=== PATIENT | female | born 1970 | race Caucasian/White ===

== ENCOUNTER 2020-01-28 17:40 | Emergency (ER) | payer OTHER ==
[~2020-01-28] VITALS: Ht 160 cm; Wt 82.6 kg
[2020-01-28 17:40] VITALS: BP 123/91
[2020-01-28] MEDS ORDERED: FLUORESCEIN 1MG EYE STRIP. ONE (17:49)
[2020-01-28] MEDS ORDERED: TETRACAINE 0.5% OPHTH SOLUTION 4ML BOTTLE. ONE (17:49)
[2020-01-28] MEDS ORDERED: FLUORESCEIN 1MG EYE STRIP. OS ONE (18:30)
[2020-01-28] MEDS ORDERED: TETRACAINE 0.5% OPHTH SOLUTION 4ML BOTTLE. OS ONE (18:30)
[2020-01-28] MEDS ORDERED: KETOROLAC TROMETHAMINE 0.5% OPHTH SOLUTION BOTTLE. OS ONE (19:30)
[2020-01-28] MEDS ORDERED: HYDROcodon/IBUPROFEN 7.5/200MG 1 TAB TABLET PO ONE (19:30)
[2020-01-28] MEDS ORDERED: ERYTHROMYCIN 0.5% OPHTH OINTMENT 1GM TUBE. OS ONE (20:00)
[2020-01-28] MEDS ORDERED: DIPH,PERTUSS(ACELL),TET VAC/PF 0.5 ML SYRINGE. VAX IM ONE (20:00)
--- NOTE | 2020-01-29 07:48 | PHYS DOC ---
Past History Past Medical History: Asthma Past Surgical History: Cholecystectomy, Hysterectomy Additional Past Surgical Histo: thyroidectomy Alcohol Use: Rarely General Adult EDM: Chief Complaint: EYE PROBLEMS HPI: HPI: ".. I was moving some old [employer] light bulbs.. and some of the broke. .or really nacho popped open.. dust and felt like dust or glass particles went every where.. I felt stuff hit my face.. My Lt eye afterwards seemed irritated.. I am worried I got glass or something like the dust from inside of the bulbs in this Lt. eye..The right eye seems fine.. .I ve had Lasix surgery to both eyes.. .. the Rt. one was set up for far sight.. the Lt for reading.. I used to be really near sighted... well any way there is no visual changes.. even though I cannot read the far away letters with this left eye... It just had I am worried there may be glass or some dust or something in this left eye .. it feels irritated..." Patient is a 49 year old female with above history and complaints of left lower eye irritation after breaking some [place] bulbs and scattered dust and glass. Patient denies any vision changes. Patient localizes discomfort to left eye. Snellen eye chart by nursing showed vision in right eye was 20/20. Limited vision in left eye at distance. The patient states there was no change in vision since she had Lasix surgery, and left eye was left to be used for reading close-up . Patient left eye has no limbus injection. No obvious perforation with use of fluorescein. There was some mild take up fluorescein on cornea from very superficial abrasions. There was no consensual photophobia or direct photophobia in either eye. There was no obvious cell or flare. Limited Fundus but no obvious acute issues. Left eye was irrigated with normal saline under pressure. Patient did receive some tetracaine to allow for adequate exam and irrigation. Lids were lifted to allow irrigation under lids. No obvious foreign body or glass detected. The pt. did have findings of the superficial abrasions to the cornea. With the use of fluorescein did not detect any obvious perforation. Did use the split lamp. No obvious cell or flare. No obvious iris injury. No obvious lid injury. Patient does not remember her last tetanus shot so it was updated. Did apply erythromycin ointment to the left eye and she is to continue very small amounts 4 times a day. May take Tylenol and ibuprofen for pain. May use Toradol eyedrops 1 drop to left eye 4 times a day. Must return if any increased redness discomfort or pain or decreased vision. Warned not to rub eye. Warned always a possibility of missed foreign body or glass. Always concern chemical in side of the bulbs could irritate the eyes. Patient instructed to call nutritional services director of her choice or if unable to get in call office at [facility] for follow up exam, or if increased discomfort present to ED or hospital that has an nutritional services director secondary special education teacher for exam promptly. Patient denies any history immunosuppression. No recent travel. No specific ill contacts. Normally follows at [facility]. Note patient- observed for period time before discharge. Did report marked improvement of symptoms in left eye even after the tetracaine had worn off. Patient warned not to rub eye. Must follow-up promptly if any increased symptoms. Review of Systems: Review of Systems: Constitutional: Denies fever or chills Eyes: Denies change in visual acuity HENT: Denies nasal congestion or sore throat Respiratory: Denies cough or shortness of breath Cardiovascular: Denies chest pain or edema GI: Denies abdominal pain, nausea, vomiting, bloody stools or diarrhea : Denies dysuria Musculoskeletal: Denies back pain or joint pain Integument: Denies rash Neurologic: Denies headache, focal weakness or sensory changes Endocrine: Denies polyuria or polydipsia Lymphatic: Denies swollen glands Psychiatric: Denies depression or anxiety Current Medications: Current Meds: Current Medications Medications (Trade) Dose Ordered Sig/Krys Start Time Stop Time Status Last Admin Dose Admin Diphtheria/ Pertussis/Tetanus Vacc (ADACEL TDap SYRINGE) 0.5 ml ONCE ONCE 01/28/20 20:00 01/28/20 20:01 DC 01/28/20 19:58 0.5 ML Erythromycin (Romycin) 0.25 inch 1X ONCE 01/28/20 20:00 01/28/20 20:01 DC Fluorescein Sodium (Ful-Mila 1mg) 1 strip 1X ONCE 01/28/20 18:30 01/28/20 18:31 DC 01/28/20 18:15 1 STRIP Hydrocodone Bitartrate/ Ibuprofen (Vicoprofen 7.5-200) 2 tab 1X ONCE 01/28/20 19:30 01/28/20 19:50 DC 01/28/20 19:41 2 TAB Ketorolac Tromethamine (Acular) 1 drop 1X ONCE 01/28/20 19:30 01/28/20 19:50 DC 01/28/20 19:43 1 DROP Tetracaine HCl (Tetracaine) 1 drop 1X ONCE 01/28/20 18:30 01/28/20 18:31 DC 01/28/20 18:14 1 DROP Allergies: Allergies: Allergies Coded Allergies Type Severity Reaction Last Updated Verified promethazine Allergy Intermediate 01/28/20 Yes Physical Exam: PE: Constitutional: Well developed, well nourished, moderate acute distress, non- toxic appearance. [] HENT: Normocephalic, atraumatic, bilateral external ears normal, oropharynx moist, no oral exudates, nose normal. [] Eyes: PERRLA, EOMI, conjunctiva normal, no discharge. Exam left eye as per HPI. No photophobia. Patient reports no decreased vision. Neck: Normal range of motion, no tenderness, supple, no stridor. Old surgery scar Cardiovascular:Heart rate regular rhythm, no murmur [] Lungs & Thorax: Bilateral breath sounds equal apex on auscultation [] Abdomen: Bowel sounds normal, soft, no tenderness, no masses, no pulsatile masses. Old surgery scars. Skin: Warm, dry, no erythema, no rash. [] Back: No tenderness, no CVA tenderness. [] Extremities: No tenderness, no cyanosis, no clubbing, ROM intact, no edema. [] Neurologic: Alert and oriented X 3, normal motor function, normal sensory function, no focal deficits noted. [] Psychologic: Affect anxious, judgement normal, mood normal. [] Current Patient Data: Vital Signs: Vital Signs Date Time Temp Pulse Resp B/P (MAP) Pulse Ox O2 Delivery O2 Flow Rate FiO2 01/28/20 17:40 97.8 90 18 123/91 (102) 98 Room Air EKG: EKG: [] Radiology/Procedures: Radiology/Procedures: [] Heart Score: Risk Factors: Risk Factors: DM, Current or recent (<one month) smoker, HTN, HLP, family history of CAD, obesity. Risk Scores: Score 0 - 3: 2.5% MACE over next 6 weeks - Discharge Home Score 4 - 6: 20.3% MACE over next 6 weeks - Admit for Clinical Observation Score 7 - 10: 72.7% MACE over next 6 weeks - Early Invasive Strategies Course & Med Decision Making: Course & Med Decision Making Pertinent Labs and Imaging studies reviewed. (See chart for details). ED D course as per HPI. Patient to apply a very small amount of erythromycin ointment 4 times a day to left eye. Warned this can cause some decreased vision due to the ointment. Patient may use Toradol eyedrop 1 drop left eye 4 times a day. Must follow-up promptly if any increased symptoms where secondary special education teacher nutritional services director is available even tonight. Impression: 1. Lt eye cornea abrasion 2. Hx of suspect foreign bodies and or glass in Lt eye. Did call pt. [phone]. Pt. reports some increase bilateral lid edema and irritation. No changes in vision. Reports some increased conjunctiva redness. Patient has not been able to get through to [place] for their referral at this time. Requested patient to call or follow-up immediately with an nutritional services director. Would call [place] services for prompt follow-up. Especially since her symptoms have not significantly improved in the left eye, and now seems to be having bilateral lid chemical inflammation. Pt. does report some increased sensitivity to light which was not present last night. Expressed my concerns for traumatic iritis and need for prompt follow up. [] Sofia Disclaimer: Sofia Disclaimer: This electronic medical record was generated, in whole or in part, using a voice recognition dictation system. Departure Departure: Impression: Primary Impression: Cornea abrasion Disposition: 01 DC HOME SELF CARE/HOMELESS Condition: GUARDED Patient Instructions: Eye - Corneal Abrasion Additional Instructions: Use very small amount of erythromycin ointment to Lt eye 4 x day. May use Toradol drop up to 4 x day. Must follow up with ophthalmology of your choice. Call for an appointment in the morning...DO NOT RUB EYE. Dr. Salazar at [facility]- [phone] if unable to get into your doctor. Tell them you where seen in the ED. Recommend follow up even if better tomorrow. Follow up [facility] tonight if increased symptoms or hospital that has Optho. secondary special education teacher. May take tylenol and ibuprofen for discomfort at same time. PHILOMENA CAMPBELL MD Jan 29, 2020 07:48
== END 2020-01-28 20:27 | disposition home or self-care (01) ==
LOC: ER 17:40
DX: S05.02XA Injury of conjunctiva and corneal abrasion without foreign body, left eye, initial encounter (principal); J45.909 Unspecified asthma, uncomplicated; X58.XXXA Exposure to other specified factors, initial encounter; Y93.89 Activity, other specified; Y92.89 Other specified places as the place of occurrence of the external cause; Y99.8 Other external cause status
CPT/HCPCS: 90471; 90715; 99284

== ENCOUNTER 2020-03-14 13:07 | Emergency (ER) | payer OTHER ==
[~2020-03-14] VITALS: Ht 160 cm; Wt 75.0 kg
[2020-03-14 13:10] VITALS: BP 135/78
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
== END 2020-03-14 14:32 | disposition home or self-care (01) ==
LOC: ER 13:07
DX: M54.2 Cervicalgia (principal); M54.5 Low back pain; J45.909 Unspecified asthma, uncomplicated; Z88.8 Allergy status to other drugs, medicaments and biological substances; V98.8XXA Other specified transport accidents, initial encounter; Y93.89 Activity, other specified; Y92.488 Other paved roadways as the place of occurrence of the external cause; Y99.8 Other external cause status
CPT/HCPCS: 70450; 72125; 72128; 72131; 99285-25